=== PATIENT | male | born 1945 | race African-American/Black ===

== ENCOUNTER 2018-10-30 01:59 | Inpatient (IN) | payer OTHER ==
[~2018-10-30] VITALS: Ht 177.8 cm; Wt 64.4 kg
[~2018-10-30 01:59] MED LIST: ALLO100T PO; ASPI-1393 PO; CHOL100044 GT; LOSA100T32 PO; METO-539 PO; SODI650T PO
[2018-10-30] MEDS ORDERED: LABETALOL 5MG/ML SYR 20 MG/4 ML SYRINGE IV ONE (02:15)
[2018-10-30] MEDS ORDERED: NITROGLYCERIN OINT 1GM/INCH UDPKT TD ONE (02:15)
[2018-10-30 02:25] LABS: BASOPHILS % 0.2 % (0.0-2.0); EOSINOPHILS % 6.4 % (0.0-5.0); HEMATOCRIT. 34.6 % (42.0-52.0); HEMOGLOBIN. 11.5 g/dL (14.0-18.0); MEAN CORPUSCULAR HEMOGLOBIN 31.3 pg (28.0-32.0); MEAN PLATELET VOLUME 8.1 fl (7.4-10.4); MONOCYTES % 7.4 % (2.0-8.0); PLATELET 306 x1000/uL (130-400); RED BLOOD CELL COUNT 3.68 mill/uL (4.7-6.1); RED CELL DISTRIBUTION WIDTH 16.6 % (11.6-14.6)
[2018-10-30 02:29] LABS: CHLORIDE 96 mEq/L (98-107)
[2018-10-30] MEDS ORDERED: ENOXAPARIN 40MG/0.4ML SYR SUBCUT SCH (06:15)
[2018-10-30] MEDS ORDERED: GUAIFENESIN 200MG/10ML SUGAR FREE UDC PO PRN (06:15)
[2018-10-30] MEDS ORDERED: LORAZEPAM 2MG/ML CPJ IV PRN (06:15)
[2018-10-30] MEDS ORDERED: DIPHENHYDRAMINE 50MG/ML VIAL IV PRN (06:15)
[2018-10-30] MEDS ORDERED: DOCUSATE SODIUM 100MG CAPSULE PO PRN (06:15)
[2018-10-30] MEDS ORDERED: IPRATROPIUM/ALBUTEROL 0.5-3(2.5)MG/3ML NEB HHN PRN ×2 (06:15→16:30)
[2018-10-30] MEDS ORDERED: MAGNESIUM/ALUMINUM HYDROXIDE/SIMETHICONE 30ML UDC PO PRN (06:15)
[2018-10-30] MEDS ORDERED: ACETAMINOPHEN 325MG TABLET PO PRN (06:15)
[2018-10-30] MEDS: HYDRALAZINE 20MG/ML VIAL IV PRN ×2 (12:12→18:58)
[2018-10-30] MEDS: CLONIDINE 0.1MG TABLET PO PRN (14:58)
[2018-10-30 15:40] VITALS: BP 214/101
[2018-10-30 16:01] VITALS: BP 214/101
[2018-10-30 16:08] VITALS: BP 214/101
[2018-10-30 20:00] VITALS: BP 166/80
[2018-10-30] MEDS: ENOXAPARIN 30MG/0.3ML SYR SUBCUT SCH (20:01)
[2018-10-30] MEDS: SEVELAMER CARBONATE 800 MG TABLET PO SCH (20:01)
[2018-10-30] MEDS: IPRATROPIUM/ALBUTEROL 0.5-3(2.5)MG/3ML NEB HHN SCH (20:39)
[2018-10-30] MEDS: OMEPRAZOLE 20MG CAPSULE EXTENDED RELEASE PO SCH (21:13)
[2018-10-30] MEDS: SODIUM CHLORIDE 0.9% INJ 3ML FLUSH IVF SCH (22:50)
[2018-10-31] VITALS: BP 179/86
[2018-10-31 00:32] LABS: CREATINE KINASE MB FRACTION 1.4 ng/mL (0.5-3.6)
[2018-10-31] MEDS: IPRATROPIUM/ALBUTEROL 0.5-3(2.5)MG/3ML NEB HHN SCH ×4 (01:50→22:28)
[2018-10-31 04:00] VITALS: BP 175/84
[2018-10-31 07:02] LABS: BASOPHILS % 0.8 % (0.0-2.0); EOSINOPHILS % 5.5 % (0.0-5.0); HEMATOCRIT. 29.3 % (42.0-52.0); HEMOGLOBIN. 9.8 g/dL (14.0-18.0); LYMPHOCYTES % 18.4 % (20.0-50.0); MEAN CORPUSCULAR HEMOGLOBIN 31.1 pg (28.0-32.0); MEAN CORPUSCULAR VOLUME 93.1 fL (80.0-94.0); MEAN PLATELET VOLUME 8.7 fl (7.4-10.4); MONOCYTES % 9.4 % (2.0-8.0); NEUTROPHILS % 65.9 % (40.0-76.0); PLATELET 216 x1000/uL (130-400); RED BLOOD CELL COUNT 3.15 mill/uL (4.7-6.1); RED CELL DISTRIBUTION WIDTH 16.9 % (11.6-14.6)
[2018-10-31] MEDS: SODIUM CHLORIDE 0.9% INJ 3ML FLUSH IVF SCH ×3 (07:07→21:38)
[2018-10-31 08:00] VITALS: BP 185/92
[2018-10-31] MEDS ORDERED: ROPINIROLE HCL 0.25MG TABLET PO PRN (08:00)
[2018-10-31] MEDS: OMEPRAZOLE 20MG CAPSULE EXTENDED RELEASE PO SCH ×2 (08:50→21:38)
[2018-10-31] MEDS: SEVELAMER CARBONATE 800 MG TABLET PO SCH ×2 (08:50→17:11)
[2018-10-31] MEDS: FOLIC ACID/VITAMIN B COMP W-C TABLET PO SCH (08:50)
[2018-10-31] MEDS: HYDRALAZINE 20MG/ML VIAL IV PRN (08:51)
[2018-10-31 09:20] LABS: CHLORIDE 103 mEq/L (98-107)
[2018-10-31 09:30] LABS: PHOSPHORUS 2.2 mg/dL (2.5-4.9)
[2018-10-31 09:31] LABS: LDL CHOLESTEROL 69 mg/dL (5-100)
[2018-10-31 09:33] LABS: HDL CHOLESTEROL 47 mg/dL (40-59)
[2018-10-31 12:00] VITALS: BP 166/80
[2018-10-31 15:06] LABS: CREATINE KINASE MB FRACTION 1.1 ng/mL (0.5-3.6)
[2018-10-31 16:00] VITALS: BP 150/81
[2018-10-31] MEDS: ENOXAPARIN 30MG/0.3ML SYR SUBCUT SCH (17:11)
[2018-10-31] MEDS: MORPHINE SULFATE 2 MG/ML CPJ (NOT FOR IM USE) IV PRN (17:32)
[2018-10-31 20:00] VITALS: BP 161/77
[2018-10-31 20:37] LABS: T4 FREE 0.95 ng/dL (0.76-1.46)
[2018-11-01] VITALS: BP 164/84
[2018-11-01] MEDS: HYDROCODONE/ACETAMINOPHEN 10/325MG TABLET PO PRN (00:41)
[2018-11-01] MEDS: IPRATROPIUM/ALBUTEROL 0.5-3(2.5)MG/3ML NEB HHN SCH ×4 (02:08→22:02)
[2018-11-01] MEDS: MORPHINE SULFATE 2 MG/ML CPJ (NOT FOR IM USE) IV PRN ×2 (03:59→10:39)
[2018-11-01 04:00] VITALS: BP 181/94
[2018-11-01] MEDS: SODIUM CHLORIDE 0.9% INJ 3ML FLUSH IVF SCH ×3 (06:13→22:08)
[2018-11-01 08:00] VITALS: BP 179/86
[2018-11-01] MEDS: SEVELAMER CARBONATE 800 MG TABLET PO SCH ×3 (08:50→17:10)
[2018-11-01] MEDS: FOLIC ACID/VITAMIN B COMP W-C TABLET PO SCH (08:50)
[2018-11-01] MEDS: OMEPRAZOLE 20MG CAPSULE EXTENDED RELEASE PO SCH ×2 (08:50→22:02)
[2018-11-01 10:28] LABS: BASOPHILS % 0.9 % (0.0-2.0); EOSINOPHILS % 8.9 % (0.0-5.0); HEMATOCRIT. 29.9 % (42.0-52.0); LYMPHOCYTES % 21.4 % (20.0-50.0); MEAN CORPUSCULAR HEMOGLOBIN 31.3 pg (28.0-32.0); MEAN CORPUSCULAR VOLUME 93.7 fL (80.0-94.0); MEAN PLATELET VOLUME 8.7 fl (7.4-10.4); NEUTROPHILS % 55.8 % (40.0-76.0); PLATELET 223 x1000/uL (130-400); RED CELL DISTRIBUTION WIDTH 16.4 % (11.6-14.6)
[2018-11-01 12:00] VITALS: BP 170/80
[2018-11-01] MEDS: HYDRALAZINE HCL 25MG TABLET PO SCH ×2 (13:49→22:08)
[2018-11-01] MEDS: ONDANSETRON HCL 4MG/2ML INJ IV PRN (13:53)
[2018-11-01 16:00] VITALS: BP 171/89
[2018-11-01] MEDS: ENOXAPARIN 30MG/0.3ML SYR SUBCUT SCH (16:22)
[2018-11-01] MEDS: DOCUSATE SODIUM 250MG CAPSULE PO SCH (16:24)
[2018-11-01] MEDS: CLONIDINE 0.1MG TABLET PO PRN (17:10)
[2018-11-01 20:00] VITALS: BP 155/84
[2018-11-01] MEDS ORDERED: BISACODYL 5MG TABLET PO PRN (21:00)
[2018-11-01] MEDS: SENNOSIDES/DOCUSATE SOD 8.6/50MG TABLET PO SCH (22:02)
[2018-11-01] MEDS: MUPIROCIN 2% OINT 22GM NS SCH (22:02)
[2018-11-01] MEDS: LACTULOSE 20G/30ML UDC PO SCH (22:03)
[2018-11-02] VITALS: BP 141/75
[2018-11-02] MEDS: IPRATROPIUM/ALBUTEROL 0.5-3(2.5)MG/3ML NEB HHN SCH ×4 (02:16→20:44)
[2018-11-02 06:08] VITALS: BP 155/70
[2018-11-02] MEDS: HYDRALAZINE HCL 25MG TABLET PO SCH ×3 (06:10→21:35)
[2018-11-02] MEDS: SODIUM CHLORIDE 0.9% INJ 3ML FLUSH IVF SCH ×3 (06:10→21:02)
[2018-11-02 06:45] LABS: BASOPHILS % 0.8 % (0.0-2.0); EOSINOPHILS % 8.8 % (0.0-5.0); HEMATOCRIT. 29.7 % (42.0-52.0); HEMOGLOBIN. 9.8 g/dL (14.0-18.0); LYMPHOCYTES % 14.9 % (20.0-50.0); MEAN CORPUSCULAR HEMOGLOBIN 31.4 pg (28.0-32.0); MEAN CORPUSCULAR VOLUME 94.6 fL (80.0-94.0); MEAN PLATELET VOLUME 8.7 fl (7.4-10.4); MONOCYTES % 13.8 % (2.0-8.0); NEUTROPHILS % 61.7 % (40.0-76.0); PLATELET 205 x1000/uL (130-400); RED BLOOD CELL COUNT 3.14 mill/uL (4.7-6.1); RED CELL DISTRIBUTION WIDTH 16.3 % (11.6-14.6)
[2018-11-02 07:11] LABS: CHLORIDE 100 mEq/L (98-107)
[2018-11-02 07:19] LABS: PHOSPHORUS 4.5 mg/dL (2.5-4.9)
[2018-11-02 08:00] VITALS: BP 163/82
[2018-11-02] MEDS: SEVELAMER CARBONATE 800 MG TABLET PO SCH ×3 (08:41→18:08)
[2018-11-02] MEDS: FOLIC ACID/VITAMIN B COMP W-C TABLET PO SCH (08:41)
[2018-11-02] MEDS: CLONIDINE 0.1MG TABLET PO PRN ×2 (08:42→21:35)
[2018-11-02] MEDS: OMEPRAZOLE 20MG CAPSULE EXTENDED RELEASE PO SCH ×2 (08:42→21:01)
[2018-11-02] MEDS: DOCUSATE SODIUM 250MG CAPSULE PO SCH (08:42)
[2018-11-02] MEDS: MUPIROCIN 2% OINT 22GM NS SCH ×2 (08:43→21:02)
[2018-11-02] MEDS ORDERED: BISACODYL 5MG TABLET PO NR (10:15)
[2018-11-02] MEDS: METOCLOPRAMIDE HCL 5MG TABLET PO SCH ×2 (10:42→18:11)
[2018-11-02 12:00] VITALS: BP 121/67
[2018-11-02] MEDS ORDERED: PSYLLIUM SEED PACKET PO SCH (13:00)
[2018-11-02 14:45] LABS: BG BASE EXCESS -2.4 mmol/L (-2.0-2.0); BG DEOXYHEMOGLOBIN 10.2 % (0.0-5.0); BG FRACTION INSPIRED OXYGEN 21; BG METHEMOGLOBIN 0.2 % (0.0-1.5); BG OXYGEN SATURATION 89.7 % (92.0-98.5); BG OXYHEMOGLOBIN 88.6 % (94.0-97.0); BG PCO2 36.6 mmHg (35.0-45.0); BG PH 7.397 (7.350-7.450); BG PO2 57.6 mmHg (75.0-100.0); BG SAMPLE SITE RIGHT RADIAL; BG TOTAL HEMOGLOBIN 11.1 g/dL (12.0-18.0); BG VENT MODE ROOM AIR
[2018-11-02 16:00] VITALS: BP 135/65
[2018-11-02] MEDS: ENOXAPARIN 30MG/0.3ML SYR SUBCUT SCH ×2 (16:00→18:08)
[2018-11-02] MEDS ORDERED: LACTULOSE 20G/30ML UDC PO ONE (17:15)
[2018-11-02] MEDS ORDERED: SORBITOL 70% SOLN 30ML PO NR (17:30)
[2018-11-02] MEDS: ONDANSETRON HCL 4MG/2ML INJ IV PRN (18:54)
[2018-11-02 20:00] VITALS: BP 164/78
[2018-11-02] MEDS: SENNOSIDES/DOCUSATE SOD 8.6/50MG TABLET PO SCH (21:01)
[2018-11-02] MEDS: LACTULOSE 20G/30ML UDC PO SCH (21:38)
[2018-11-03] VITALS: BP 110/50
[2018-11-03] MEDS: IPRATROPIUM/ALBUTEROL 0.5-3(2.5)MG/3ML NEB HHN SCH ×4 (01:12→20:27)
[2018-11-03] MEDS: METOCLOPRAMIDE HCL 5MG TABLET PO SCH ×3 (02:47→17:50)
[2018-11-03 04:00] VITALS: BP 159/72
[2018-11-03] MEDS: ONDANSETRON HCL 4MG/2ML INJ IV PRN (05:30)
[2018-11-03] MEDS: SODIUM CHLORIDE 0.9% INJ 3ML FLUSH IVF SCH ×3 (05:30→22:00)
[2018-11-03] MEDS: HYDRALAZINE HCL 25MG TABLET PO SCH ×3 (05:31→22:00)
[2018-11-03 07:56] LABS: HEMATOCRIT. 30.5 % (42.0-52.0); HEMOGLOBIN. 10.1 g/dL (14.0-18.0); MEAN CORPUSCULAR HEMOGLOBIN 31.1 pg (28.0-32.0); MEAN CORPUSCULAR VOLUME 94.2 fL (80.0-94.0); MEAN PLATELET VOLUME 8.8 fl (7.4-10.4); PLATELET 222 x1000/uL (130-400); RED BLOOD CELL COUNT 3.23 mill/uL (4.7-6.1)
[2018-11-03 08:00] VITALS: BP 160/72
[2018-11-03 09:14] LABS: CHLORIDE 97 mEq/L (98-107)
[2018-11-03] MEDS: OMEPRAZOLE 20MG CAPSULE EXTENDED RELEASE PO SCH (09:19)
[2018-11-03] MEDS: FOLIC ACID/VITAMIN B COMP W-C TABLET PO SCH (09:19)
[2018-11-03] MEDS: DOCUSATE SODIUM 250MG CAPSULE PO SCH ×2 (09:19→17:50)
[2018-11-03] MEDS: POLYETHYLENE GLYCOL 3350 (17GM) 1 DOSE PACK PO SCH (09:20)
[2018-11-03] MEDS: SEVELAMER CARBONATE 800 MG TABLET PO SCH ×3 (09:20→17:50)
[2018-11-03 09:29] LABS: PHOSPHORUS 3.9 mg/dL (2.5-4.9)
[2018-11-03] MEDS: MUPIROCIN 2% OINT 22GM NS SCH ×2 (09:40→21:00)
[2018-11-03 12:00] VITALS: BP 134/55
[2018-11-03 16:00] VITALS: BP 152/64
[2018-11-03] MEDS: ENOXAPARIN 30MG/0.3ML SYR SUBCUT SCH (17:52)
[2018-11-03 20:00] VITALS: BP 171/69
[2018-11-03] MEDS: SENNOSIDES/DOCUSATE SOD 8.6/50MG TABLET PO SCH (21:00)
[2018-11-03] MEDS: LACTULOSE 20G/30ML UDC PO SCH (21:00)
[2018-11-04] VITALS: BP 156/79
[2018-11-04] MEDS: IPRATROPIUM/ALBUTEROL 0.5-3(2.5)MG/3ML NEB HHN SCH ×4 (01:30→20:49)
[2018-11-04] MEDS: HYDROCODONE/ACETAMINOPHEN 10/325MG TABLET PO PRN (03:12)
[2018-11-04] MEDS: METOCLOPRAMIDE HCL 5MG TABLET PO SCH ×3 (03:13→17:53)
[2018-11-04 04:00] VITALS: BP 153/75
[2018-11-04] MEDS: SODIUM CHLORIDE 0.9% INJ 3ML FLUSH IVF SCH ×3 (06:43→21:23)
[2018-11-04] MEDS: HYDRALAZINE HCL 25MG TABLET PO SCH ×3 (06:44→21:32)
[2018-11-04 08:00] VITALS: BP 140/69
[2018-11-04 09:06] LABS: PLATELET ESTIMATE NORMAL
[2018-11-04] MEDS: POLYETHYLENE GLYCOL 3350 (17GM) 1 DOSE PACK PO SCH (09:30)
[2018-11-04] MEDS: FOLIC ACID/VITAMIN B COMP W-C TABLET PO SCH (09:30)
[2018-11-04] MEDS: SEVELAMER CARBONATE 800 MG TABLET PO SCH ×3 (09:30→17:53)
[2018-11-04] MEDS: FAMOTIDINE 20MG TABLET PO SCH (09:30)
[2018-11-04] MEDS: DOCUSATE SODIUM 250MG CAPSULE PO SCH ×2 (09:30→17:53)
[2018-11-04] MEDS: MUPIROCIN 2% OINT 22GM NS SCH ×2 (09:37→21:23)
[2018-11-04 12:00] VITALS: BP 122/59
[2018-11-04] MEDS ORDERED: POLYETHYLENE GLYCOL 3350 (17GM) 1 DOSE PACK PO NR (13:15)
[2018-11-04 16:00] VITALS: BP 140/66
[2018-11-04] MEDS: ENOXAPARIN 30MG/0.3ML SYR SUBCUT SCH (17:54)
[2018-11-04 20:00] VITALS: BP 130/70
[2018-11-04] MEDS: LACTULOSE 20G/30ML UDC PO SCH (21:23)
[2018-11-04] MEDS: SENNOSIDES/DOCUSATE SOD 8.6/50MG TABLET PO SCH (21:23)
[2018-11-05] VITALS: BP 159/81
[2018-11-05] MEDS: METOCLOPRAMIDE HCL 5MG TABLET PO SCH ×3 (01:20→18:42)
[2018-11-05] MEDS: IPRATROPIUM/ALBUTEROL 0.5-3(2.5)MG/3ML NEB HHN SCH ×4 (02:25→20:12)
[2018-11-05 04:00] VITALS: BP 156/80
[2018-11-05] MEDS: HYDRALAZINE HCL 25MG TABLET PO SCH (06:04)
[2018-11-05] MEDS: SODIUM CHLORIDE 0.9% INJ 3ML FLUSH IVF SCH ×3 (06:04→22:06)
[2018-11-05 08:00] VITALS: BP 144/69
[2018-11-05] MEDS: SEVELAMER CARBONATE 800 MG TABLET PO SCH ×3 (08:50→16:21)
[2018-11-05] MEDS: FAMOTIDINE 20MG TABLET PO SCH (08:50)
[2018-11-05] MEDS: FOLIC ACID/VITAMIN B COMP W-C TABLET PO SCH (08:50)
[2018-11-05] MEDS: POLYETHYLENE GLYCOL 3350 (17GM) 1 DOSE PACK PO SCH ×3 (08:50→08:58)
[2018-11-05] MEDS: DOCUSATE SODIUM 250MG CAPSULE PO SCH ×2 (08:50→16:21)
[2018-11-05] MEDS: MUPIROCIN 2% OINT 22GM NS SCH ×2 (08:57→22:04)
[2018-11-05] MEDS ORDERED: LOSARTAN POTASSIUM 100 MG TABLET PO SCH (13:15)
[2018-11-05 13:53] LABS: BG BASE EXCESS 1.2 mmol/L (-2.0-2.0); BG CARBOXYHEMOGLOBIN 0.7 % (0.5-1.5); BG DEOXYHEMOGLOBIN 3.3 % (0.0-5.0); BG FRACTION INSPIRED OXYGEN 28; BG HCO3 ACT 26.4 mmol/L (22.0-26.0); BG METHEMOGLOBIN 0.2 % (0.0-1.5); BG OXYGEN SATURATION 96.7 % (92.0-98.5); BG OXYHEMOGLOBIN 95.8 % (94.0-97.0); BG PCO2 44.2 mmHg (35.0-45.0); BG PH 7.394 (7.350-7.450); BG PO2 90.3 mmHg (75.0-100.0); BG SAMPLE SITE RIGHT RADIAL; BG TOTAL HEMOGLOBIN 11.1 g/dL (12.0-18.0); BG VENT MODE NASAL CANNULA
[2018-11-05] MEDS ORDERED: SIMETHICONE 80MG TABLET CHEW PO PRN (15:15)
[2018-11-05 16:12] LABS: BG BASE EXCESS 0.9 mmol/L (-2.0-2.0); BG CARBOXYHEMOGLOBIN 0.6 % (0.5-1.5); BG DEOXYHEMOGLOBIN 11.3 % (0.0-5.0); BG FRACTION INSPIRED OXYGEN 21; BG HCO3 ACT 25.4 mmol/L (22.0-26.0); BG METHEMOGLOBIN 0.2 % (0.0-1.5); BG OXYGEN SATURATION 88.6 % (92.0-98.5); BG OXYHEMOGLOBIN 87.9 % (94.0-97.0); BG PCO2 40.3 mmHg (35.0-45.0); BG PH 7.418 (7.350-7.450); BG SAMPLE SITE RIGHT BRACHIAL; BG TOTAL HEMOGLOBIN 11.1 g/dL (12.0-18.0); BG VENT MODE ROOM AIR
[2018-11-05] MEDS: ENOXAPARIN 30MG/0.3ML SYR SUBCUT SCH (16:19)
[2018-11-05] MEDS ORDERED: HYDRALAZINE HCL 50MG TABLET PO SCH (21:00)
[2018-11-05] MEDS: LACTULOSE 20G/30ML UDC PO SCH (22:04)
[2018-11-05] MEDS: SENNOSIDES/DOCUSATE SOD 8.6/50MG TABLET PO SCH (22:04)
[2018-11-05 22:14] VITALS: BP 160/76
== END 2018-11-05 23:00 | disposition home or self-care (01) | DRG 291 ==
LOC: ER 01:59 → 6WST 05:24 → EDBEDREQTM 05:27 → EDBEDREQ 05:27 → EDBEDREQSVC 05:27 → ENRESERV 14:00
PROVIDERS: ADMIT Internal Medicine; ATTEND Internal Medicine
PROC: 5A09357 Assistance with Respiratory Ventilation, Less than 24 Consecutive Hours, Continuous Positive Airway Pressure (ICD-10-PCS; principal; 2018-10-30)
PROC: 5A1D70Z Performance of Urinary Filtration, Intermittent, Less than 6 Hours Per Day (ICD-10-PCS; 2018-10-30)
PROC: 5A1D70Z Performance of Urinary Filtration, Intermittent, Less than 6 Hours Per Day (ICD-10-PCS; 2018-11-03)
DX: I13.2 Hypertensive heart and chronic kidney disease with heart failure and with stage 5 chronic kidney disease, or end stage renal disease (principal); J96.01 Acute respiratory failure with hypoxia; N18.6 End stage renal disease; I50.41 Acute combined systolic (congestive) and diastolic (congestive) heart failure; D63.1 Anemia in chronic kidney disease; E11.22 Type 2 diabetes mellitus with diabetic chronic kidney disease; E11.51 Type 2 diabetes mellitus with diabetic peripheral angiopathy without gangrene; K40.20 Bilateral inguinal hernia, without obstruction or gangrene, not specified as recurrent; D47.2 Monoclonal gammopathy; J43.9 Emphysema, unspecified; K59.00 Constipation, unspecified; E87.70 Fluid overload, unspecified; M10.9 Gout, unspecified; K80.20 Calculus of gallbladder without cholecystitis without obstruction; Z99.2 Dependence on renal dialysis; Z82.49 Family history of ischemic heart disease and other diseases of the circulatory system; Z87.891 Personal history of nicotine dependence; Z90.5 Acquired absence of kidney; Z91.15 Patient's noncompliance with renal dialysis; Z79.899 Other long term (current) drug therapy; Z79.82 Long term (current) use of aspirin
CPT/HCPCS: 36415; 36600; 71045; 71250; 74018; 74176; 78582; 80048; 80061; 82375; 82378; 82550; 82553; 82805; 83036; 83735; 83880; 84100; 84439; 84443; 84484; 85379; 93005; 93306; 93970; 94640; 94660; 97116; 97162; 97166; 99285; A9558; J0360; J1650; J2270; J2405; J3490; J7620; J8597

== ENCOUNTER 2020-02-04 04:33 | Emergency (ER) | payer OTHER ==
[~2020-02-04] VITALS: Ht 175.3 cm; Wt 78.0 kg
[~2020-02-04 04:33] MED LIST changes: -ASPI-1393 PO; +ASPI-1497 PO
[2020-02-04] MEDS ORDERED: NOREPINEPHRINE 8MG/250ML PMX 250 ML IV STA (05:12)
[2020-02-04] MEDS ORDERED: EPINEPHRINE 1 MG in SODIUM CHLORIDE 0.9% 250 ML IV STA (05:12)
[2020-02-04] MEDS ORDERED: SODIUM CHLORIDE 0.9% 1,000 ML IV ONE (05:15)
[2020-02-04] MEDS ORDERED: EPINEPHRINE 10 MG in SODIUM CHLORIDE 0.9% 250 ML IV PRN (05:15)
[2020-02-04] MEDS ORDERED: NOREPINEPHRINE 8 MG in DEXTROSE 5% WATER 250 ML IV PRN (05:30)
[2020-02-04 05:33] LABS: HEMATOCRIT. 34.8 % (42.0-52.0); MEAN CORPUSCULAR HEMOGLOBIN 31.4 pg (28.0-32.0); MEAN CORPUSCULAR VOLUME 99.1 fL (80.0-94.0); PLATELET 271 x1000/uL (130-400); RED BLOOD CELL COUNT 3.51 mill/uL (4.7-6.1); RED CELL DISTRIBUTION WIDTH 18.2 % (11.6-14.6)
[2020-02-04 05:40] LABS: CHLORIDE 94 mEq/L (98-107)
[2020-02-04 05:56] LABS: INR 1.2; PROTHROMBIN TIME 12.8 sec (9.6-11.0)
[2020-02-04 06:13] LABS: BG BASE EXCESS -14.6 mmol/L (-2.0-2.0); BG CARBOXYHEMOGLOBIN 0.6 % (0.5-1.5); BG DEOXYHEMOGLOBIN 14.1 % (0.0-5.0); BG FRACTION INSPIRED OXYGEN 100; BG HCO3 ACT 16.8 mmol/L (22.0-26.0); BG OXYGEN SATURATION 85.8 % (92.0-98.5); BG OXYHEMOGLOBIN 85.3 % (94.0-97.0); BG PCO2 65.8 mmHg (35.0-45.0); BG PH 7.024 (7.350-7.450); BG PO2 77.8 mmHg (75.0-100.0); BG SAMPLE SITE RIGHT BRACHIAL; BG TOTAL HEMOGLOBIN 12.9 g/dL (12.0-18.0); BG VENT MODE VENT - AC
[2020-02-04] MEDS ORDERED: LIDOCAINE 1%/EPI 1:100,000 10 ML VIAL IJ ONE (06:30)
[2020-02-04] MEDS ORDERED: LIDOCAINE HCL/EPINEPHRINE 1%-EPI 1:100,000 20 ML VIAL INFIL ONE (07:00)
[2020-02-04] MEDS ORDERED: AZITHROMYCIN 500 MG in DEXT 5% WATER 250 ML IV SCH (07:15)
[2020-02-04] MEDS ORDERED: ACETAMINOPHEN 325MG TABLET PO PRN (07:15)
[2020-02-04] MEDS ORDERED: CLONIDINE 0.1MG TABLET PO PRN (07:15)
[2020-02-04] MEDS ORDERED: CEFTRIAXONE 1 G PREMIX 50 ML IV SCH (07:15)
[2020-02-04] MEDS ORDERED: ONDANSETRON HCL 4MG/2ML INJ IV PRN (07:15)
[2020-02-04 07:31] LABS: PLATELET ESTIMATE NORMAL
[2020-02-04] MEDS ORDERED: CEFTRIAXONE 1,000 MG in DEXTROSE 5% WATER 50 ML IV SCH (08:00)
[2020-02-04] MEDS ORDERED: AMLODIPINE 10MG TABLET PO SCH (09:00)
[2020-02-04] MEDS ORDERED: AZITHROMYCIN 500MG in DEXTROSE 5% WATER 250ML IV SCH (09:00)
[2020-02-04] MEDS ORDERED: CEFTRIAXONE SODIUM 1 G/VIAL ONE (09:00)
[2020-02-04 10:52] LABS: BG BASE EXCESS -6.5 mmol/L (-2.0-2.0); BG CARBOXYHEMOGLOBIN 0.5 % (0.5-1.5); BG DEOXYHEMOGLOBIN 0.1 % (0.0-5.0); BG HCO3 ACT 19.3 mmol/L (22.0-26.0); BG METHEMOGLOBIN 0.4 % (0.0-1.5); BG OXYGEN SATURATION 99.9 % (92.0-98.5); BG PCO2 39.4 mmHg (35.0-45.0); BG PH 7.307 (7.350-7.450); BG PO2 374.4 mmHg (75.0-100.0); BG SAMPLE SITE RIGHT RADIAL; BG TOTAL HEMOGLOBIN 13.3 g/dL (12.0-18.0); BG VENT MODE VENT - AC
[2020-02-04 17:18] VITALS: BP 0/0
[2020-02-04] MEDS ORDERED: EPINEPHRINE 0.1MG/ML (1:10,000) 10ML SYR IV ONE (17:30)
== END 2020-02-04 21:01 | disposition expired ==
LOC: ER 04:33 → CANBEDREQ 17:54 → EDBEDREQ 19:54 → ER 21:01 → CANBEDREQ 02-05 19:35
DX: I13.2 Hypertensive heart and chronic kidney disease with heart failure and with stage 5 chronic kidney disease, or end stage renal disease (principal); N18.6 End stage renal disease; I50.33 Acute on chronic diastolic (congestive) heart failure; I46.9 Cardiac arrest, cause unspecified; E87.2 Acidosis; J93.0 Spontaneous tension pneumothorax; J96.00 Acute respiratory failure, unspecified whether with hypoxia or hypercapnia; D47.2 Monoclonal gammopathy; J12.89 Other viral pneumonia; Z99.2 Dependence on renal dialysis; Z79.82 Long term (current) use of aspirin; Z79.899 Other long term (current) drug therapy; Z98.890 Other specified postprocedural states; Z86.74 Personal history of sudden cardiac arrest; Z20.828 Contact with and (suspected) exposure to other viral communicable diseases
CPT/HCPCS: 32551; 36415; 36556; 36600; 71045; 80053; 82375; 82805; 83605; 83880; 84484; 85025; 85610; 87040; 92950; 93005; 93970; 94003; 96365; 96366; 96368; 99291; J0456; J0696; J7030; J7060; J3490; J7050